=== PATIENT | female | born 1945 | race Two or more races ===

== ENCOUNTER 2020-03-11 16:00 | Inpatient (IN) | payer MEDICARE, MEDICAID ==
[~2020-03-11] VITALS: Ht 152.4 cm; Wt 53.5 kg
[2020-03-11] MEDS ORDERED: ACETAMINOPHEN 325 MG TABLET PO PRN (17:30)
[2020-03-11 17:53] VITALS: BP 120/57
[2020-03-11] MEDS: ACETAMINOPHEN 325 MG TABLET PO PRN (17:53)
[2020-03-11] MEDS: SUCRALFATE 1 GM TABLET PO SCH ×2 (19:50→23:49)
[2020-03-11] MEDS: METOPROLOL TARTRATE 25 MG TABLET PO SCH (21:00)
[2020-03-11] MEDS: DOXYCYCLINE HYCLATE 100 MG TABLET PO SCH (21:24)
[2020-03-11] MEDS: DOCUSATE SODIUM 100 MG CAPSULE PO SCH (21:24)
[2020-03-11] MEDS: ATORVASTATIN CALCIUM 20 MG TABLET PO SCH (21:24)
[2020-03-11] MEDS: SENNA 187 MG TABLET PO SCH (21:24)
[2020-03-11] MEDS: MetroNIDAZOLE 250 MG TABLET PO SCH (21:24)
[2020-03-11] MEDS: BISMUTH SUBSALICYLATE 524 MG/30 ML SUSPENSION UDCUP PO SCH (21:24)
[2020-03-11 23:56] VITALS: BP 99/73
[2020-03-12] MEDS: PANTOPRAZOLE SODIUM 40 MG DR TABLET PO SCH ×2 (05:47→15:31)
[2020-03-12] MEDS: SUCRALFATE 1 GM TABLET PO SCH ×4 (05:47→21:43)
[2020-03-12 07:22] VITALS: BP 102/59
[2020-03-12] MEDS: DOCUSATE SODIUM 100 MG CAPSULE PO SCH ×2 (08:50→21:18)
[2020-03-12] MEDS: MetroNIDAZOLE 250 MG TABLET PO SCH ×4 (08:50→21:18)
[2020-03-12] MEDS: METOPROLOL TARTRATE 25 MG TABLET PO SCH ×2 (08:51→21:18)
[2020-03-12] MEDS: BISMUTH SUBSALICYLATE 524 MG/30 ML SUSPENSION UDCUP PO SCH ×4 (08:51→21:18)
[2020-03-12] MEDS: DOXYCYCLINE HYCLATE 100 MG TABLET PO SCH ×2 (08:52→21:18)
[2020-03-12] MEDS: MULTIVITAMINS WITH MINERALS, THERAPEUTIC TABLET PO SCH (08:52)
[2020-03-12] MEDS: ACETAMINOPHEN 325 MG TABLET PO PRN (10:09)
[2020-03-12 12:45] LABS: BASOPHILS % (AUTO) 0.5 % (0.0-2.0); EOSINOPHILS % (AUTO) 1.6 % (1.0-6.0); HEMATOCRIT 24.7 % (36-46); HEMOGLOBIN 8.5 g/dL (12.0-16.0); LYMPHOCYTES # (AUTO) 1.4 K/uL (1.0-4.8); LYMPHOCYTES % (AUTO) 14.9 % (22.0-44.0); MEAN CORPUSCULAR HEMOGLOBIN 32.8 pg (26.0-34.0); MEAN CORPUSCULAR HGB CONC 34.4 G/dL (31.0-37.0); MEAN CORPUSCULAR VOLUME 95 fL (80-100); MONOCYTES % (AUTO) 10.7 % (2.0-9.0); NEUTROPHILS # (AUTO) 6.8 K/uL (1.8-7.7); NEUTROPHILS % (AUTO) 72.3 % (40.0-70.0); PLATELET COUNT (AUTO) 494 K/uL (150-450); RED BLOOD CELL COUNT(AUTO) 2.59 MIL/uL (4.00-5.20)
[2020-03-12 13:01] LABS: ALANINE AMINOTRANSFERASE 19 U/L (12-78); ALBUMIN 2.7 g/dL (3.4-5.0); ALKALINE PHOSPHATASE 75 U/L (46-116); ANION GAP 9 mmol/L (8-16); ASPARTATE AMINOTRANSFERASE 14 U/L (15-37); BILIRUBIN,TOTAL 0.2 mg/dL (0.1-1.0); CALCIUM, TOTAL 8.8 mg/dL (8.8-10.5); CARBON DIOXIDE 25 mmol/L (22-29); CHLORIDE 100 mmol/L (98-107); CREATININE 0.79 mg/dL (0.60-1.30); GLUCOSE,RANDOM 102 mg/dL (70-110); POTASSIUM 3.9 mmol/L (3.5-5.1); SODIUM SERUM 134 mmol/L (136-145); TOTAL PROTEIN, SERUM 6.6 g/dL (6.4-8.2); UREA NITROGEN, BLOOD 19 mg/dL (7-18)
[2020-03-12 13:10] LABS: GLOMERULAR FILTR. RATE CALC > 60 mL/min (>60)
[2020-03-12 17:02] VITALS: BP 114/61
[2020-03-12] MEDS: ATORVASTATIN CALCIUM 20 MG TABLET PO SCH (21:18)
[2020-03-12] MEDS: SENNA 187 MG TABLET PO SCH (21:18)
[2020-03-13 02:01] VITALS: BP_SYST 107; BP_SYST 97; BP_SYST 99; BP_DIAS 53; BP_DIAS 57; BP_DIAS 64
[2020-03-13] MEDS: PANTOPRAZOLE SODIUM 40 MG DR TABLET PO SCH ×2 (06:06→16:27)
[2020-03-13] MEDS: SUCRALFATE 1 GM TABLET PO SCH ×4 (06:06→20:42)
[2020-03-13 08:00] VITALS: BP 123/64
[2020-03-13] MEDS: DOCUSATE SODIUM 100 MG CAPSULE PO SCH ×2 (08:34→20:42)
[2020-03-13] MEDS: DOXYCYCLINE HYCLATE 100 MG TABLET PO SCH ×2 (08:34→20:42)
[2020-03-13] MEDS: METOPROLOL TARTRATE 25 MG TABLET PO SCH ×2 (08:34→20:43)
[2020-03-13] MEDS: MULTIVITAMINS WITH MINERALS, THERAPEUTIC TABLET PO SCH (08:34)
[2020-03-13] MEDS: MetroNIDAZOLE 250 MG TABLET PO SCH ×4 (08:34→20:43)
[2020-03-13] MEDS: BISMUTH SUBSALICYLATE 524 MG/30 ML SUSPENSION UDCUP PO SCH ×4 (08:35→20:41)
[2020-03-13 16:19] VITALS: BP 112/70
[2020-03-13 20:40] VITALS: BP 106/64
[2020-03-13] MEDS: ATORVASTATIN CALCIUM 20 MG TABLET PO SCH (20:41)
[2020-03-13] MEDS: SENNA 187 MG TABLET PO SCH (20:41)
[2020-03-14 02:03] VITALS: BP 129/64
[2020-03-14] MEDS: ACETAMINOPHEN 325 MG TABLET PO PRN (02:03)
[2020-03-14] MEDS: SUCRALFATE 1 GM TABLET PO SCH ×4 (06:19→20:36)
[2020-03-14] MEDS: PANTOPRAZOLE SODIUM 40 MG DR TABLET PO SCH ×2 (06:19→16:12)
[2020-03-14 08:16] LABS: BASOPHILS % (AUTO) 0.7 % (0.0-2.0); EOSINOPHILS % (AUTO) 1.8 % (1.0-6.0); HEMATOCRIT 23.4 % (36-46); LYMPHOCYTES # (AUTO) 1.7 K/uL (1.0-4.8); LYMPHOCYTES % (AUTO) 20.7 % (22.0-44.0); MEAN CORPUSCULAR HEMOGLOBIN 32.5 pg (26.0-34.0); MEAN CORPUSCULAR HGB CONC 34.3 G/dL (31.0-37.0); MEAN CORPUSCULAR VOLUME 95 fL (80-100); MONOCYTES # (AUTO) 0.8 K/uL (0.1-1.0); MONOCYTES % (AUTO) 9.5 % (2.0-9.0); NEUTROPHILS # (AUTO) 5.5 K/uL (1.8-7.7); NEUTROPHILS % (AUTO) 67.3 % (40.0-70.0); PLATELET COUNT (AUTO) 582 K/uL (150-450); RED BLOOD CELL COUNT(AUTO) 2.47 MIL/uL (4.00-5.20)
[2020-03-14 09:45] VITALS: BP 115/60
[2020-03-14] MEDS: METOPROLOL TARTRATE 25 MG TABLET PO SCH ×2 (10:00→20:36)
[2020-03-14] MEDS: DOCUSATE SODIUM 100 MG CAPSULE PO SCH ×2 (10:00→20:36)
[2020-03-14] MEDS: MetroNIDAZOLE 250 MG TABLET PO SCH ×4 (10:01→20:36)
[2020-03-14] MEDS: BISMUTH SUBSALICYLATE 524 MG/30 ML SUSPENSION UDCUP PO SCH ×4 (10:01→20:36)
[2020-03-14] MEDS: MULTIVITAMINS WITH MINERALS, THERAPEUTIC TABLET PO SCH (10:01)
[2020-03-14] MEDS: DOXYCYCLINE HYCLATE 100 MG TABLET PO SCH ×2 (10:01→20:36)
[2020-03-14 15:16] VITALS: BP 107/47
[2020-03-14] MEDS: SENNA 187 MG TABLET PO SCH (20:36)
[2020-03-14] MEDS: ATORVASTATIN CALCIUM 20 MG TABLET PO SCH (20:36)
[2020-03-15] VITALS (8 sets, daily range): BP systolic 59–126; BP diastolic 47–65
[2020-03-15] MEDS: PANTOPRAZOLE SODIUM 40 MG DR TABLET PO SCH ×2 (05:30→16:59)
[2020-03-15] MEDS: SUCRALFATE 1 GM TABLET PO SCH ×4 (05:30→20:30)
[2020-03-15] MEDS: DOCUSATE SODIUM 100 MG CAPSULE PO SCH ×2 (08:01→20:31)
[2020-03-15] MEDS: MetroNIDAZOLE 250 MG TABLET PO SCH ×4 (08:02→20:31)
[2020-03-15] MEDS: METOPROLOL TARTRATE 25 MG TABLET PO SCH ×2 (08:02→20:30)
[2020-03-15] MEDS: MULTIVITAMINS WITH MINERALS, THERAPEUTIC TABLET PO SCH (08:02)
[2020-03-15] MEDS: DOXYCYCLINE HYCLATE 100 MG TABLET PO SCH ×2 (08:02→20:31)
[2020-03-15] MEDS: BISMUTH SUBSALICYLATE 524 MG/30 ML SUSPENSION UDCUP PO SCH ×4 (08:02→20:33)
[2020-03-15] MEDS: ACETAMINOPHEN 325 MG TABLET PO PRN (14:21)
[2020-03-15] MEDS: SENNA 187 MG TABLET PO SCH (20:30)
[2020-03-15] MEDS: ATORVASTATIN CALCIUM 20 MG TABLET PO SCH (20:31)
[2020-03-16] MEDS: PANTOPRAZOLE SODIUM 40 MG DR TABLET PO SCH ×2 (06:17→16:40)
[2020-03-16] MEDS: SUCRALFATE 1 GM TABLET PO SCH ×4 (06:17→20:56)
[2020-03-16 07:58] VITALS: BP 130/84
[2020-03-16] MEDS: MULTIVITAMINS WITH MINERALS, THERAPEUTIC TABLET PO SCH (08:18)
[2020-03-16] MEDS: MetroNIDAZOLE 250 MG TABLET PO SCH ×4 (08:18→20:56)
[2020-03-16] MEDS: DOCUSATE SODIUM 100 MG CAPSULE PO SCH ×2 (08:19→20:56)
[2020-03-16] MEDS: BISMUTH SUBSALICYLATE 524 MG/30 ML SUSPENSION UDCUP PO SCH ×4 (08:19→20:57)
[2020-03-16] MEDS: METOPROLOL TARTRATE 25 MG TABLET PO SCH ×2 (08:19→20:57)
[2020-03-16] MEDS: DOXYCYCLINE HYCLATE 100 MG TABLET PO SCH ×2 (08:19→20:57)
[2020-03-16] MEDS: ACETAMINOPHEN 325 MG TABLET PO PRN (08:27)
[2020-03-16 08:46] LABS: BASOPHILS % (AUTO) 0.8 % (0.0-2.0); EOSINOPHILS % (AUTO) 1.7 % (1.0-6.0); HEMOGLOBIN 9.8 g/dL (12.0-16.0); LYMPHOCYTES # (AUTO) 1.4 K/uL (1.0-4.8); LYMPHOCYTES % (AUTO) 18.5 % (22.0-44.0); MEAN CORPUSCULAR HEMOGLOBIN 32.4 pg (26.0-34.0); MEAN CORPUSCULAR HGB CONC 33.7 G/dL (31.0-37.0); MEAN CORPUSCULAR VOLUME 96 fL (80-100); MONOCYTES # (AUTO) 0.4 K/uL (0.1-1.0); MONOCYTES % (AUTO) 5.8 % (2.0-9.0); NEUTROPHILS # (AUTO) 5.6 K/uL (1.8-7.7); NEUTROPHILS % (AUTO) 73.2 % (40.0-70.0); PLATELET COUNT (AUTO) 695 K/uL (150-450); RED BLOOD CELL COUNT(AUTO) 3.02 MIL/uL (4.00-5.20); RED CELL DISTRIBUTION WIDTH 14.6 % (11.5-14.5)
[2020-03-16 08:56] LABS: ANION GAP 9 mmol/L (8-16); CALCIUM, TOTAL 9.9 mg/dL (8.8-10.5); CARBON DIOXIDE 26 mmol/L (22-29); CHLORIDE 102 mmol/L (98-107); GLUCOSE,RANDOM 121 mg/dL (70-110); SODIUM SERUM 137 mmol/L (136-145); UREA NITROGEN, BLOOD 16 mg/dL (7-18)
[2020-03-16 09:05] LABS: GLOMERULAR FILTR. RATE CALC > 60 mL/min (>60)
[2020-03-16] MEDS: CLOPIDOGREL BISULFATE 75 MG TABLET PO SCH (12:21)
[2020-03-16 15:10] VITALS: BP 120/83
[2020-03-16 20:52] VITALS: BP 101/55
[2020-03-16] MEDS: ATORVASTATIN CALCIUM 20 MG TABLET PO SCH (20:56)
[2020-03-16] MEDS: SENNA 187 MG TABLET PO SCH (20:56)
[2020-03-16 23:19] VITALS: BP 97/51
[2020-03-17] MEDS: SUCRALFATE 1 GM TABLET PO SCH ×4 (05:50→20:43)
[2020-03-17] MEDS: PANTOPRAZOLE SODIUM 40 MG DR TABLET PO SCH ×2 (05:50→15:31)
[2020-03-17 07:53] VITALS: BP 119/69
[2020-03-17 08:15] VITALS: BP_SYST 82; BP_SYST 99; BP_DIAS 45; BP_DIAS 63
[2020-03-17] MEDS: ASPIRIN 81 MG EC TABLET PO SCH (08:16)
[2020-03-17] MEDS: CLOPIDOGREL BISULFATE 75 MG TABLET PO SCH (08:17)
[2020-03-17] MEDS: DOCUSATE SODIUM 100 MG CAPSULE PO SCH ×2 (08:17→20:44)
[2020-03-17] MEDS: DOXYCYCLINE HYCLATE 100 MG TABLET PO SCH ×2 (08:18→20:44)
[2020-03-17] MEDS: MetroNIDAZOLE 250 MG TABLET PO SCH ×4 (08:18→20:43)
[2020-03-17] MEDS: MULTIVITAMINS WITH MINERALS, THERAPEUTIC TABLET PO SCH (08:19)
[2020-03-17] MEDS: BISMUTH SUBSALICYLATE 524 MG/30 ML SUSPENSION UDCUP PO SCH ×4 (08:19→20:43)
[2020-03-17] MEDS: METOPROLOL TARTRATE 25 MG TABLET PO SCH (08:43)
[2020-03-17 16:00] VITALS: BP 122/63
[2020-03-17] MEDS: ACETAMINOPHEN 325 MG TABLET PO PRN (20:43)
[2020-03-17] MEDS: ATORVASTATIN CALCIUM 20 MG TABLET PO SCH (20:43)
[2020-03-17] MEDS: SENNA 187 MG TABLET PO SCH (20:44)
[2020-03-18 03:54] VITALS: BP 105/58
[2020-03-18] MEDS: SUCRALFATE 1 GM TABLET PO SCH ×4 (05:41→20:45)
[2020-03-18] MEDS: PANTOPRAZOLE SODIUM 40 MG DR TABLET PO SCH ×2 (05:41→15:56)
[2020-03-18 07:20] LABS: BASOPHILS % (AUTO) 1.1 % (0.0-2.0); EOSINOPHILS % (AUTO) 1.7 % (1.0-6.0); HEMATOCRIT 23.9 % (36-46); HEMOGLOBIN 8.3 g/dL (12.0-16.0); LYMPHOCYTES # (AUTO) 1.4 K/uL (1.0-4.8); LYMPHOCYTES % (AUTO) 23.1 % (22.0-44.0); MEAN CORPUSCULAR HEMOGLOBIN 32.7 pg (26.0-34.0); MEAN CORPUSCULAR HGB CONC 34.5 G/dL (31.0-37.0); MEAN CORPUSCULAR VOLUME 95 fL (80-100); MONOCYTES # (AUTO) 0.6 K/uL (0.1-1.0); MONOCYTES % (AUTO) 9.6 % (2.0-9.0); NEUTROPHILS % (AUTO) 64.5 % (40.0-70.0); PLATELET COUNT (AUTO) 622 K/uL (150-450); RED BLOOD CELL COUNT(AUTO) 2.53 MIL/uL (4.00-5.20); RED CELL DISTRIBUTION WIDTH 14.9 % (11.5-14.5)
[2020-03-18 09:48] VITALS: BP 103/50
[2020-03-18] MEDS: ACETAMINOPHEN 325 MG TABLET PO PRN (09:48)
[2020-03-18] MEDS: DOXYCYCLINE HYCLATE 100 MG TABLET PO SCH ×2 (09:49→20:45)
[2020-03-18] MEDS: MetroNIDAZOLE 250 MG TABLET PO SCH ×4 (09:49→20:45)
[2020-03-18] MEDS: MULTIVITAMINS WITH MINERALS, THERAPEUTIC TABLET PO SCH (09:50)
[2020-03-18] MEDS: CLOPIDOGREL BISULFATE 75 MG TABLET PO SCH (09:50)
[2020-03-18] MEDS: BISMUTH SUBSALICYLATE 524 MG/30 ML SUSPENSION UDCUP PO SCH ×4 (09:50→20:45)
[2020-03-18] MEDS: DOCUSATE SODIUM 100 MG CAPSULE PO SCH ×2 (09:50→20:45)
[2020-03-18] MEDS: ASPIRIN 81 MG EC TABLET PO SCH (09:51)
[2020-03-18 15:47] VITALS: BP 101/53
[2020-03-18] MEDS: ACETAMINOPHEN 325 MG TABLET PO SCH ×2 (15:56→20:45)
[2020-03-18] MEDS: SENNA 187 MG TABLET PO SCH (20:45)
[2020-03-18] MEDS: ATORVASTATIN CALCIUM 20 MG TABLET PO SCH (20:45)
[2020-03-19 01:15] VITALS: BP 96/57
[2020-03-19] MEDS: PANTOPRAZOLE SODIUM 40 MG DR TABLET PO SCH (05:30)
[2020-03-19] MEDS: SUCRALFATE 1 GM TABLET PO SCH ×2 (05:30→13:20)
[2020-03-19 08:35] LABS: ANION GAP 11 mmol/L (8-16); CALCIUM, TOTAL 9.1 mg/dL (8.8-10.5); CARBON DIOXIDE 23 mmol/L (22-29); CHLORIDE 103 mmol/L (98-107); CREATININE 0.65 mg/dL (0.60-1.30); GLUCOSE,RANDOM 106 mg/dL (70-110); POTASSIUM 4.3 mmol/L (3.5-5.1); SODIUM SERUM 137 mmol/L (136-145); UREA NITROGEN, BLOOD 20 mg/dL (7-18)
[2020-03-19 08:38] LABS: BASOPHILS % (AUTO) 1.1 % (0.0-2.0); EOSINOPHILS % (AUTO) 1.6 % (1.0-6.0); HEMATOCRIT 24.8 % (36-46); HEMOGLOBIN 8.4 g/dL (12.0-16.0); LYMPHOCYTES # (AUTO) 1.5 K/uL (1.0-4.8); LYMPHOCYTES % (AUTO) 23.6 % (22.0-44.0); MEAN CORPUSCULAR HEMOGLOBIN 32.6 pg (26.0-34.0); MEAN CORPUSCULAR VOLUME 96 fL (80-100); MONOCYTES # (AUTO) 0.5 K/uL (0.1-1.0); MONOCYTES % (AUTO) 7.7 % (2.0-9.0); NEUTROPHILS # (AUTO) 4.2 K/uL (1.8-7.7); PLATELET COUNT (AUTO) 658 K/uL (150-450); RED BLOOD CELL COUNT(AUTO) 2.58 MIL/uL (4.00-5.20); RED CELL DISTRIBUTION WIDTH 15.3 % (11.5-14.5)
[2020-03-19 08:41] LABS: GLOMERULAR FILTR. RATE CALC > 60 mL/min (>60)
[2020-03-19] MEDS: MetroNIDAZOLE 250 MG TABLET PO SCH ×2 (08:54→13:20)
[2020-03-19] MEDS: DOCUSATE SODIUM 100 MG CAPSULE PO SCH (08:54)
[2020-03-19] MEDS: ASPIRIN 81 MG EC TABLET PO SCH (08:54)
[2020-03-19] MEDS: CLOPIDOGREL BISULFATE 75 MG TABLET PO SCH (08:55)
[2020-03-19] MEDS: BISMUTH SUBSALICYLATE 524 MG/30 ML SUSPENSION UDCUP PO SCH ×2 (08:55→13:37)
[2020-03-19] MEDS: ACETAMINOPHEN 325 MG TABLET PO SCH (08:55)
[2020-03-19] MEDS: MULTIVITAMINS WITH MINERALS, THERAPEUTIC TABLET PO SCH (08:55)
[2020-03-19] MEDS: DOXYCYCLINE HYCLATE 100 MG TABLET PO SCH (08:55)
[2020-03-19 09:23] VITALS: BP 121/71
== END 2020-03-19 14:00 | DRG 56 ==
LOC: 2WR 17:00
PROVIDERS: ADMIT Physical Medicine & Rehabilitation; ATTEND Physical Medicine & Rehabilitation
DX: I69.354 Hemiplegia and hemiparesis following cerebral infarction affecting left non-dominant side (principal); I63.40 Cerebral infarction due to embolism of unspecified cerebral artery; K26.9 Duodenal ulcer, unspecified as acute or chronic, without hemorrhage or perforation; D72.829 Elevated white blood cell count, unspecified; I10 Essential (primary) hypertension; M81.0 Age-related osteoporosis without current pathological fracture; Z20.828 Contact with and (suspected) exposure to other viral communicable diseases; Z79.82 Long term (current) use of aspirin; Z79.899 Other long term (current) drug therapy; Z90.710 Acquired absence of both cervix and uterus; F43.21 Adjustment disorder with depressed mood; M19.90 Unspecified osteoarthritis, unspecified site
CPT/HCPCS: 87081; 92507; 92523; 93970; 97110; 97112; 97116; 97163; 97166; 97530; 97535; 99366

== ENCOUNTER → 2020-05-25 | Outpatient (CLI) | payer MEDICAID, MEDICARE ==
[~2020-05-25] MED LIST: GADOBUTROL 1 MMOL/ML 10 ML VIAL IVP ONE
== END | disposition home or self-care (01) ==
LOC: RADMN 09:29
PROVIDERS: ATTEND Physical Medicine & Rehabilitation
DX: M19.072 Primary osteoarthritis, left ankle and foot (principal); M25.475 Effusion, left foot; M62.572 Muscle wasting and atrophy, not elsewhere classified, left ankle and foot; M89.8X7 Other specified disorders of bone, ankle and foot
CPT/HCPCS: 73720; A9585